=== PATIENT | female | born 1960 | race African-American/Black ===

== ENCOUNTER 2022-05-20 09:42 | Emergency (ER) | payer OTHER ==
[2022-05-20 10:10] LABS: EPITHELIAL CELLS RARE /hpf
[2022-05-20 10:11] VITALS: BP 154/102; PULSE 95; RESP 20; TEMP 99.1; BMI 26.7
[2022-05-20] MEDS ORDERED: ONDANSETRON 4 MG/2 ML VIAL IVPUSH ONE (10:11)
[2022-05-20] MEDS ORDERED: ACETAMINOPHEN 1000 MG/100 ML BAG IVPB ONE (10:11)
[2022-05-20] MEDS ORDERED: SODIUM CHLORIDE 1,000 ML IV STA (10:11)
[2022-05-20] MEDS ORDERED: ONDANSETRON 4 MG/2 ML VIAL ONE (10:17)
[2022-05-20] MEDS ORDERED: ACETAMINOPHEN INJECTION 100 ML IVPB ONE (10:17)
[2022-05-20 10:54] LABS: HEMATOCRIT 37.5 % (32.4-45.2); HEMOGLOBIN 12.8 G/dL (10.7-15.3); MCH 28.2 pg (25.7-33.7); MCHC 34.1 g/dl (32.0-36.0); MEAN CELL VOLUME 82.5 fl (80-96); MEAN PLT VOLUME 9.5 fl (7.5-11.1); PLATELET COUNT 265.5 10^3/uL (134-434); RBC 4.54 10^6/uL (3.60-5.2); RDW 16.7 % (11.6-15.6); WHITE BLOOD COUNT 11.9 10^3/uL (4.0-10.8)
[2022-05-20 11:01] LABS: PLATELET ESTIMATE ADEQUATE
[2022-05-20 11:05] LABS: CALCIUM 9.6 mg/dl (8.5-10); CREATININE 1.4 mg/dl (0.55-1.3)
== END 2022-05-20 12:43 | disposition home or self-care (01) ==
LOC: FER 09:42
PROC: 3E033NZ Introduction of Analgesics, Hypnotics, Sedatives into Peripheral Vein, Percutaneous Approach (ICD-10-PCS; principal; 2022-05-20)
PROC: 3E033GC Introduction of Other Therapeutic Substance into Peripheral Vein, Percutaneous Approach (ICD-10-PCS; 2022-05-20)
DX: N20.0 Calculus of kidney (principal)
CPT/HCPCS: 36415; 74176-TC; 80053; 81003; 81015; 85027; 99284-25